=== PATIENT | female | born 1995 | race Caucasian/White ===

== ENCOUNTER 2017-09-20 21:44 | Emergency (ER) | payer BC ==
[~2017-09-20] VITALS: Ht 172.7 cm; Wt 62.6 kg
[2017-09-20 22:06] VITALS: BP 124/72
--- NOTE | 2017-09-20 22:27 | NUR ---
To chair Cormier
--- NOTE | 2017-09-20 22:33 | NUR ---
pt back to lobby refuses to be seen in a chair/ fast track, requests to be call back when a bed available. charge nurse made aware.
--- NOTE | 2017-09-20 22:35 | NUR ---
21/F C/O INSOMNIA X4 DAYS. PATIENT STATES GETTING ZYPREXA FROM [facility] DR BUT WAS UNABLE TO GET IT FILLED. PATIENT [id number]. PMH: FIBROMYALGIA
[2017-09-20] MEDS: LORazepam 1 MG TAB PO ONE (23:42)
[2017-09-20 23:53] VITALS: BP 128/81
== END 2017-09-20 23:50 | disposition home or self-care (01) ==
LOC: MED 21:44
DX: G47.00 Insomnia, unspecified (principal)
CPT/HCPCS: 99283